=== PATIENT | male | born 1955 | race African-American/Black ===

== ENCOUNTER 2021-11-29 06:35 | Day surgery (SDC) | payer OTHER ==
[2021-11-28 09:04] VITALS: BMI 30.5
[2021-11-29] MEDS ORDERED: PROPOFOL 40 ML ONE (08:36)
== END 2021-11-29 09:41 | disposition home or self-care (01) ==
LOC: CSHSDC 06:35
PROVIDERS: ATTEND Internal Medicine Gastroenterology
PROC: 0DJD8ZZ Inspection of Lower Intestinal Tract, Via Natural or Artificial Opening Endoscopic (ICD-10-PCS; principal; 2021-11-29)
DX: Z12.11 Encounter for screening for malignant neoplasm of colon (principal); K57.30 Diverticulosis of large intestine without perforation or abscess without bleeding; K64.9 Unspecified hemorrhoids; I10 Essential (primary) hypertension; E78.5 Hyperlipidemia, unspecified; E11.9 Type 2 diabetes mellitus without complications; N40.0 Benign prostatic hyperplasia without lower urinary tract symptoms; G47.30 Sleep apnea, unspecified; Z86.010 Personal history of colon polyps
CPT/HCPCS: 36416; J2704